=== PATIENT | female | born 1935 | race Caucasian/White ===

== ENCOUNTER 2023-07-21 04:41 | Emergency (ER) | payer MEDICARE, BC ==
[~2023-07-21] VITALS: Ht 167.6 cm; Wt 65.9 kg
[~2023-07-21 04:41] MED LIST: ALLEGRA 60MG TA60 MG PO; ALLEGRA30 MG PO; AMITRIPTYLINE H50 M1 PO; AMOXICILLIN 8751 TAB PO; ATIVAN 0.50.5 MG/TAB PO; ATROPINE OU; BENADRYL25 M2 PO; CEFTIN500 MG PO; CELEXA 20MG20 MG/TAB PO; CIPRO 500MG TA500 MG PO; COUMADIN 1MG1 MG/TAB PO; COUMADIN 22.5 MG/TAB PO; CULTURELLE10 Billion PO; CYMBALTA 20MG20 MG PO; DIFLUCAN200 MG PO; DULCOLAX10 MG RC; ELMIRON100 MG PO; FEROSUL325 MG PO; HYPOTEARS OP; INVANZ1 GM IM; LIDODERM PATCH TP; LOPRESSOR 225 MG/TAB PO; MAG-OX 400400 MG/TAB PO; MEGACE ORAL40 MG/ML PO; MILK OF MA400 MG/51 PO; MILLIPRED5 MG PO; MIRALAX PA17 GM/Dose PO; MYLANTA 150 ML150 M1 PO; NORCO 325 MG-51 TAB PO; PEPCID 20MG TAB20 MG PO; PRED FORTE 1 ML1 ML OP; SODIUM CHLORIDE1 G1 PO; SODIUM CHLORIDE1 GM PO; SYNTHROID0.05 MG/TA PO; TYLENOL 325MG325 MG PO; TYLENOL SU650 MG/SUP RC; TYLENOL W/COD1 UDTAB PO; URECHOLINE 25MG25 MG PO; VFEND 200MG200 MG; VIGAMOX 0.5% 3 M3 ML OP; ZOCOR 20MG20 MG; ZOCOR 20MG20 MG PO; ZOFRAN 4MG T4 MG/TAB PO
[2023-07-21 04:50] VITALS: TEMP 97.7
[2023-07-21 07:15] VITALS: BP 147/73; PULSE 78
== END 2023-07-21 07:18 | disposition home or self-care (01) ==
LOC: COL.ER 04:41
DX: S30.1XXA Contusion of abdominal wall, initial encounter (principal); W19.XXXA Unspecified fall, initial encounter; Y92.121 Bathroom in nursing home as the place of occurrence of the external cause

== ENCOUNTER 2023-09-07 08:25 | Inpatient (IN) | payer MEDICARE, BC ==
[~2023-09-07] VITALS: Ht 167.6 cm; Wt 67.0 kg
[2023-09-07 09:09] LABS: BASO % 0.4 % (0.0-2.0); EOS # 0.1 K/mm3 (0.0-0.7); EOS % 1.3 % (0.0-4.0); GRAN # 6.2 K/mm3 (1.4-6.5); GRAN % 68.8 % (42.2-75.2); HEMOGLOBIN 10.9 g/dl (12.5-16.0); LYMPH # 1.8 K/mm3 (1.2-3.4); LYMPH % 20.4 % (20.0-51.0); MEAN CELL VOLUME 85 fl (80.0-100.0); MEAN CORPUSCULAR HEMOGLOBIN 26 pg (27-31); MEAN CORPUSCULAR HGB CONC 31 g/dl (33.0-37.0); MEAN PLATELET VOLUME 8.7 fl (7.4-10.4); MONO # 0.7 K/mm3 (0.1-0.6); MONO % 8.2 % (1.7-9.3); PLATELET COUNT 282 K/mm3 (130-400); RED BLOOD COUNT 4.13 M/mm3 (4.10-5.30); REDCELL DISTRIBUTION WIDTH-CV 16.4 % (11.5-14.5)
[2023-09-07] MEDS ORDERED: LR 1,000 ML IV ONE (09:15)
[2023-09-07] MEDS ORDERED: Ondansetron 4 MG/2 ML VIAL IV ONE (09:15)
[2023-09-07 09:28] LABS: ALANINE AMINOTRANSFERASE 11 U/L (0-55); ALBUMIN 2.6 gm/dL (3.4-4.8); ALKALINE PHOSPHATASE 72 U/L (40-150); ANION GAP 12 mmol/L (7-16); AST,SGOT 13 U/L (5-34); BILIRUBIN,TOTAL 0.3 mg/dL (0.2-1.2); BLOOD UREA NITROGEN 21 mg/dL (10-20); CALCIUM 9.1 mg/dL (8.4-10.2); CARBON DIOXIDE 23 mmol/L (23-31); CHLORIDE 102 mmol/L (98-107); CREATININE, serum 0.91 mg/dL (0.57-1.11); GLUCOSE 75 mg/dL (70-99); LIPASE 24 U/L (8-78); POTASSIUM 3.7 mmol/L (3.5-4.5); SODIUM 137 mmol/L (136-145); TOTAL PROTEIN 5.5 gm/dL (6.2-8.1)
[2023-09-07 09:42] LABS: TROPONIN-I < 0.010 ng/mL (0.00-0.033)
[2023-09-07 10:07] LABS: COLLECTION METHOD CLEAN CATCH
[2023-09-07] MEDS ORDERED: Iohexol 300 - 100 ML VIAL IV ONE (10:11)
[2023-09-07] MEDS ORDERED: NS 100 ML IV SCH (10:11)
[2023-09-07 10:18] LABS: PH 6.5 (5.0-8.5); URINE APPEARANCE Cloudy (CLEAR/HAZY); URINE BLOOD Negative (NEGATIVE); URINE COLOR Yellow (YELLOW); URINE GLUCOSE Negative (NEGATIVE); URINE KETONE Negative (NEGATIVE); URINE NITRATE Positive (NEGATIVE); URINE PROTEIN(semi-quant) Negative (NEGATIVE); URINE UROBILINOGEN 0.2 E.U/dL (0.2-1.0)
[2023-09-07 10:19] LABS: URINE BACTERIA Moderate /hpf (NONE SEEN)
[2023-09-07] MEDS ORDERED: cefTRIAXone 1 G in Water For Injection,Sterile 10 ML IV ONE (11:45)
[2023-09-07] MEDS ORDERED: Morphine 4 MG/ML VIAL IV ONE (12:30)
[2023-09-07] MEDS ORDERED: DOXYCYCLINE HY100 MG PO (12:40)
[2023-09-07] MEDS ORDERED: SYNTHROID0.05 MG/TA PO (12:41)
[2023-09-07] MEDS ORDERED: ATIVAN 1MG T1 MG/TAB PO (12:42)
[2023-09-07] MEDS ORDERED: PLAVIX 75MG TAB75 MG PO (12:43)
[2023-09-07] MEDS ORDERED: ATARAX 25MG25 MG/TAB PO (12:43)
[2023-09-07] MEDS ORDERED: REQUIP 0.5MG0.5 MG PO (12:43)
[2023-09-07] MEDS ORDERED: ISOPTIN SR120 MG PO (12:44)
[2023-09-07] MEDS ORDERED: CYMBALTA 60MG60 MG PO (12:44)
[2023-09-07] MEDS ORDERED: MONUROL 3 GM3 G/PKT PO (12:45)
[2023-09-07] MEDS ORDERED: COREG 6.256.25 MG/TA PO (12:45)
[2023-09-07] MEDS ORDERED: OMNICEF 300MG300 MG PO (12:47)
[2023-09-07] MEDS ORDERED: PERCOCET 325 MG1 TAB PO (12:53)
[2023-09-07] MEDS ORDERED: PREDNISONE 5MG5 MG PO (12:54)
[2023-09-07] MEDS ORDERED: LASIX 20MG TABL20 MG PO (12:55)
[2023-09-07] MEDS ORDERED: PROTONIX 40MG T40 MG PO (12:56)
[2023-09-07] MEDS ORDERED: ZOCOR 20MG20 MG PO (12:56)
[2023-09-07] MEDS ORDERED: AMITRIPTYLINE H50 M1 PO (12:57)
[2023-09-07] MEDS ORDERED: NATURAL IRON65 MG PO (13:02)
[2023-09-07] MEDS ORDERED: VITAMINC1000TA PO (13:02)
[2023-09-07] MEDS ORDERED: PROBIOTIC BLEN1 EACH PO (13:03)
[2023-09-07] MEDS ORDERED: PRESERVISION A1 EAC3 PO (13:03)
[2023-09-07] MEDS ORDERED: VITAMIN D31000 I1 PO (13:03)
[2023-09-07] MEDS ORDERED: OMEGA-3 1000 MG1 CAP PO (13:04)
[2023-09-07] MEDS ORDERED: ASPIRIN E.C. 8181 MG PO (13:04)
[2023-09-07] MEDS ORDERED: PHARMASSURE ZIN50 MG PO (13:05)
[2023-09-07] MEDS ORDERED: OSCAL 500 TAB500 MG PO (13:06)
[2023-09-07] MEDS ORDERED: MAG-OX 400400 MG/TAB PO (13:06)
[2023-09-07] MEDS ORDERED: D5NS 1,000 ML IV SCH (15:00)
[2023-09-07] MEDS ORDERED: *Potassium Replacement Protocol MC SCH ×2 (15:00→23:00)
[2023-09-07 15:18] VITALS: BP 174/94; PULSE 89; TEMP 97.7
[2023-09-07] MEDS ORDERED: hydrALAZINE 20 MG/ML 1 ML VIAL IV PRN ×2 (15:30→16:15)
[2023-09-07] MEDS ORDERED: Morphine 4 MG/ML VIAL IV PRN (15:30)
[2023-09-07] MEDS ORDERED: THERATEARS 15 M15 ML OP (15:35)
--- NOTE | 2023-09-07 16:08 | NUR ---
PT ARRIVED TO FLOOR FROM ED. BLOOD PRESSURE WAS ELEVATED AT 174/94. DR GOMEZ WAS NOTIFIED. HE GAVE VERBAL ORDERS FOR HYDRALAZINE 10 MG IV Q4 FRO SPB >160. ALSO GOT ORDERS FOR MORPHINE FOR PT PAIN. PT CAME UP WITH NG TUBE IN. TAPED AT 55CM. PT VOIDED WHEN SHE FIRST GOT UP HERE. 1 ASSIST TO BEDSIDE COMODE. PT IS VERY ANXOIUS AND STATES THAT MOST OF HER PAIN IS IN HER KNECK AND HEAD FROM A FALL THAT SHE HAD 6 WEEKS AGO. RATES PAIN 7/10 IN THE ABODMEN AND STATES THAT THE ABDOMINAL PAIN IS GETTING BETTER. DR CRAWFORD WAS ALSO NOTIFIED BY THIS NURSE OF CONSULT.
[2023-09-07] MEDS ORDERED: Heparin 5,000 UNITS/ML 1 ML VIAL SQ SCH (16:19)
[2023-09-07] MEDS ORDERED: Carvedilol 6.25 MG TAB PO SCH (17:00)
[2023-09-07 17:03] VITALS: BP 116/77
[2023-09-07 17:22] VITALS: BP_SYST 116
[2023-09-07] MEDS ORDERED: LORazepam 2 MG/ML 1 ML VIAL IV PRN (17:45)
[2023-09-07 20:12] VITALS: BP 123/76; PULSE 92; TEMP 98.4
[2023-09-07] MEDS ORDERED: Amitriptyline 50 MG TAB PO SCH (21:00)
[2023-09-07 21:32] VITALS: BP_SYST 123
--- NOTE | 2023-09-07 21:32 | NUR ---
Patient assessed at this time, see shift assessment, called Marci the WRINGER MACHINE OPERATOR d/t patient is complaining of headache, received an order for toradol and can have a little bit of ice chips,NPO maintained, still with IV infusing well on left forearm, D5NS at 75cc/hr, with NG to LIS, denies nausea or vomiting, states her abdomen is not bad at this time, denies further needs, call light and personal items within reach, fall precautions in place, will continue to monitor.
[2023-09-07] MEDS ORDERED: Carboxymethylcellulose PF Ophth 0.4 ML DROPPERETTE OP PRN (21:45)
[2023-09-07] MEDS ORDERED: Ketorolac 15 MG/ML VIAL IV ONE (21:45)
[2023-09-07] MEDS ORDERED: Potassium Chloride 100 ML IV ONE (23:00)
[2023-09-08] VITALS (13 sets, daily range): BP systolic 127–156; BP diastolic 83–95; PULSE 85–97; TEMP 96.8–98.8
[2023-09-08 07:46] LABS: BASO % 0.5 % (0.0-2.0); EOS # 0.1 K/mm3 (0.0-0.7); EOS % 1.1 % (0.0-4.0); GRAN % 61.8 % (42.2-75.2); LYMPH # 1.7 K/mm3 (1.2-3.4); LYMPH % 25.6 % (20.0-51.0); MEAN CELL VOLUME 81 fl (80.0-100.0); MEAN CORPUSCULAR HGB CONC 32 g/dl (33.0-37.0); MEAN PLATELET VOLUME 9.5 fl (7.4-10.4); MONO # 0.7 K/mm3 (0.1-0.6); MONO % 10.2 % (1.7-9.3); PLATELET COUNT 272 K/mm3 (130-400); RED BLOOD COUNT 3.54 M/mm3 (4.10-5.30); REDCELL DISTRIBUTION WIDTH-CV 16.4 % (11.5-14.5)
[2023-09-08 08:05] LABS: ALBUMIN 2.1 gm/dL (3.4-4.8); CALCIUM 8.3 mg/dL (8.4-10.2); CREATININE, serum 0.82 mg/dL (0.57-1.11); MAGNESIUM 1.7 mg/dL (1.6-2.6); POTASSIUM 3.7 mmol/L (3.5-4.5)
[2023-09-08 08:08] LABS: HEMATOCRIT 28.8 % (37.0-47.0); HEMOGLOBIN 9.2 g/dl (12.5-16.0); MEAN CORPUSCULAR HEMOGLOBIN 26 pg (27-31)
[2023-09-08] MEDS ORDERED: predniSONE 5 MG TAB PO SCH (09:00)
[2023-09-08] MEDS ORDERED: Potassium Chloride 100 ML IV SCH (09:15)
--- NOTE | 2023-09-08 09:17 | NUR ---
signal worker helper met with patient and daughter, Violeta, P# [phone], to discuss discharge planning. Patient lives at [facility] in [place]. PCP is Dr. Pacheco, pharmacy [facility], no issues affording medications at this time. DPOA-HC is Soumya Schaeffer, P# [phone], family is bringing a copy tomorrow to the hospital for our records. DME is a four wheel walker, toilet riser and shower chair. Patient receives assistance with bathing, using the restroom and house keeping. Violeta reports she assists patient with managing her medications and transports her to and from appointments. Patient reports she is currently receiving PT and OT at [facility] and enjoys it. Patient would like to return to [place] upon discharge. Discharge plan: [facility]
--- NOTE | 2023-09-08 11:11 | NUR ---
Patient awake, alert and oriented x 3. Denies abdominal pain, c/o back/neck pain, PRN given as ordered. States she is passing gas, no BM this AM. NG in place, clamped per order. Mild nausea noted after drinking water. Family member at the bedside. Bed in lowest position with call light within reach. Fall precautions in place.
[2023-09-08] MEDS ORDERED: cefTRIAXone 1 G in Water For Injection,Sterile 10 ML IV SCH (12:00)
--- NOTE | 2023-09-08 17:53 | NUR ---
NG tube remains clamped, pt complaining mainly of back/neck pain with occasional abdominal pain, nauseous with movement. Tolerating sips of clear liquids. Assisted to the bedside commode and ambulated to chair. Chair alarm on, call light within reach. Family at the bedside.
--- NOTE | 2023-09-08 19:58 | NUR ---
Patient complained of nausea and pain on her throat, called Ce, the CARROT HARVESTER and received an order for zofran and chloraseptic spray. Patient also complained of pain to her abdomen, medicated with morphine and very anxious at this time, ativan given. Hooked back to low intermittent suction, distended abdomen noted, hypoactive bowel sounds. Still with IV infusing well on left forearm, denies further needs, call light and personal items within reach, will continue to monitor.
[2023-09-08] MEDS ORDERED: Phenol 1.4% Spray 180 ML BOTTLE MM PRN (20:00)
[2023-09-08] MEDS ORDERED: Ondansetron 4 MG/2 ML VIAL IV PRN (20:00)
[2023-09-09] VITALS (12 sets, daily range): BP systolic 137–165; BP diastolic 78–88; PULSE 77–102; TEMP 98–98.4
--- NOTE | 2023-09-09 02:09 | NUR ---
Patient up to the BSC at this time and complained of headache, called Ce,the CLINICAL CONSULTANT and received an order for ultram, ultram given.
[2023-09-09] MEDS ORDERED: traMADol 50 MG TAB PO ONE ×2 (02:15→23:45)
--- NOTE | 2023-09-09 05:30 | NUR ---
Patient up to the BSC and voided, reports relief from headache, NG to LIS still draining, reports she's passing gas, no BM yet, denies nausea, will continue to monitor.
[2023-09-09 06:46] LABS: BASO % 0.3 % (0.0-2.0); EOS # 0.1 K/mm3 (0.0-0.7); EOS % 1.5 % (0.0-4.0); GRAN # 4.8 K/mm3 (1.4-6.5); GRAN % 67.3 % (42.2-75.2); HEMOGLOBIN 10.4 g/dl (12.5-16.0); LYMPH # 1.5 K/mm3 (1.2-3.4); LYMPH % 21.1 % (20.0-51.0); MEAN CELL VOLUME 83 fl (80.0-100.0); MEAN CORPUSCULAR HEMOGLOBIN 26 pg (27-31); MEAN CORPUSCULAR HGB CONC 31 g/dl (33.0-37.0); MEAN PLATELET VOLUME 8.8 fl (7.4-10.4); MONO # 0.6 K/mm3 (0.1-0.6); PLATELET COUNT 254 K/mm3 (130-400); RED BLOOD COUNT 3.97 M/mm3 (4.10-5.30); REDCELL DISTRIBUTION WIDTH-CV 16.2 % (11.5-14.5)
[2023-09-09 06:59] LABS: HEMATOCRIT 33.1 % (37.0-47.0)
[2023-09-09 07:14] LABS: ALBUMIN 2.2 gm/dL (3.4-4.8); CALCIUM 8.3 mg/dL (8.4-10.2); CREATININE, serum 0.77 mg/dL (0.57-1.11); MAGNESIUM 1.8 mg/dL (1.6-2.6); PHOSPHOROUS 2.7 mg/dL (2.3-4.7); POTASSIUM 4.1 mmol/L (3.5-4.5)
--- NOTE | 2023-09-09 07:41 | NUR ---
SHIFT ASSESSMENT COMPLETE. VSS. PATIENT RESTING IN BED. ABD DISTENDED AND PATIENT COMPLIANS OF SOME PAIN 4/10 INTERMIT. ACROSS ABD REGION. NG TUBE IN PLACE AND CONNETED TO LOW INTERMIT SUCTION. INT TO LFT FOREARM W/ NS RUNNING AT 75ML/HR NO REDNESS, SWELLING OR DRAINAGE. PATIENT HAS NO OTHER COMPLAINTS AT THIS TIME. FALL PRECAUTIONS IN PLACE AND CALL LIGHT IN REACH
[2023-09-09] MEDS ORDERED: Meropenem 500 MG in Water For Injection,Sterile 10 ML IV SCH (12:00)
--- NOTE | 2023-09-09 13:49 | NUR ---
apresoline 10mg given slow IV for SBP >160
--- NOTE | 2023-09-09 15:20 | NUR ---
appears very anxious about a number of things, medicated with ativan 0.5mg slow IV
--- NOTE | 2023-09-09 15:20 | NUR ---
PATIENT'S DAUGHTER CAME TO NURSES STATION REQUESTING NURSE TO COME CHECK ON PATIENT SHE WAS SHIVERING AND HAVING SIGNS OF INCREASED ANXITY. VITAL SIGNS TAKEN AND WERE STABLE. INSTRUCTED PATIENT TO TAKE SLOW DEEP BREATHS AND ADMINISTERED ANTIANXITY MEDS ORDERED. CALL LIGHT IN REACH.
--- NOTE | 2023-09-09 16:30 | NUR ---
CHECKED ON PATIENT AND STATUS OF ANXITY. PATIENT LAYING DOWN RESTING NOW AND FEELING BETTER. DAUGHTER STILL AT BEDSIDE. CALL LIGHT IN REACH.
--- NOTE | 2023-09-09 18:04 | NUR ---
NG TUBE CLAMPED AT 12PM TODAY, FOLLOWED UP AT 1800 FOR ANY SX OF N/V. PATIENT REPORTS NO N/V AT THIS TIME. WILL CONTINUE TO KEEP NG CLAMPED
--- NOTE | 2023-09-09 18:55 | NUR ---
PATIENT RESTING IN BED WITH FAMILY PRESENT AT THIS TIME. NO ACUTE DISTRESS NOTED. PATIENT ON ROOM AIR. PATIENT CARE ASSUMED FROM [facility] AT THIS TIME. NG TUBE IN RIGHT NARES, INTACT, PATIENT, AND CLAMPED. PATIENT DENIES ANY NEEDS AT THIS TIME. BED IN LOW POSITION WITH WHEELS LOCKED WITH RAILS UP X3 AND CALL LIGHT WITHIN REACH. BED ALARM ON.
--- NOTE | 2023-09-09 20:30 | NUR ---
PATIENT RESTING IN BED LYING ON RIGHT SIDE WITH TV OFF WITH NO FAMILY PRESENT WITH NO ACUTE DISTRESS NOTED. PATIENT ON ROOM AIR. NG TUB IN RIGHT NARES CLAMPED. ASSESSMENT AND MEDICATION ADMINISTRATION COMPLETED AT THIS TIME. PATIENT C/O HEADACHE. PATIENT STATES PAIN LEVEL IS 8/9 ON SCALE OF 0 TO 10. MORPHINE GIVEN PER MD ORDER. PATIENT TOLERATED WELL. PATIENT DENIES ANY OTHER NEEDS AT THIS TIME. BED IN LOW POSITION WITH WHEELS LOCKED WITH RAILS UP X3 AND CALL LIGHT WITHIN REACH. BED ALARM ON.
--- NOTE | 2023-09-09 23:30 | NUR ---
PATIENT C/O HEADACHE. MATEUS SANCHEZ CALLED. TELEPHONE ORDER RECIEVED FOR ULTRAM 50 MG PO ONCE.
--- NOTE | 2023-09-09 23:50 | NUR ---
PATIENT PLACED IN CONTACT ISOLATION FOR KLEBSIELLA PNEUMONIAE ESBL IN URINE.
[2023-09-10] VITALS (13 sets, daily range): BP systolic 144–165; BP diastolic 63–88; PULSE 66–96; TEMP 98.2–98.5
[2023-09-10 06:59] LABS: CALCIUM 7.9 mg/dL (8.4-10.2); CREATININE, serum 0.68 mg/dL (0.57-1.11); POTASSIUM 3.7 mmol/L (3.5-4.5)
[2023-09-10] MEDS ORDERED: Potassium Chloride 100 ML IV SCH (07:15)
[2023-09-10] MEDS ORDERED: Potassium Bicarbonate/Citrate 20 MEQ Effervescent TAB PO SCH (08:45)
--- NOTE | 2023-09-10 09:30 | NUR ---
notified and made aware of patient request for breakfast. He was updated that she had BM. NG tube DC and low fiber diet ordered. Patient thankful. Her daughters at bedside.
[2023-09-10] MEDS ORDERED: Acetaminophen 500 MG TAB PO PRN (09:45)
[2023-09-10] MEDS ORDERED: traMADol 50 MG TAB PO PRN (09:45)
[2023-09-10] MEDS ORDERED: Verapamil SR 120 MG TAB PO SCH (10:42)
--- NOTE | 2023-09-10 11:30 | NUR ---
Patient tolerated her low fiber dier. Tramadol For headache did help. Patient reports chronic pain and headaches. Her supportive family at bedside.
--- NOTE | 2023-09-10 16:49 | NUR ---
cabinet worker was notified patient needs continued IV antibiotics upon discharge. DIANE contacted [facility] to determine if they would be able to assist with that in her assisted living setting. [facility] expressed they would not be able to do so in assisted living but they have a bed available for the patient in the [facility] house upon discharge. Patient could not receive or need Ativan within 24 hours of admission. DIANE updated patient's nurse and PA, Kathy, both expressed she has been doing well and would discontinue the PRN ativan. DIANE met with patient and her daughter, Violeta, to provide the above update. Patient was not thrilled about going to [facility] instead of her assisted living apartment but was understanding. SW reviewed the important message from Medicare with patient as she was potentially discharging tomorrow. Patient understood her rights and had no questions or concerns. Patient signed the form, SW made a copy and placed the original in the chart. SW provided copy to patient. DIANE was notified patient would like to update her DPOA-HC to make her daughter, Violeta, the primary agent as her daughter, Soumya, lives in [place]. DIANE assisted patient with updating the DPOA-HC. DIANE and RN witnessed patient's signature. DIANE made several copies, placed a copy in the chart and provided the original and several copies to the patient. [facility]
--- NOTE | 2023-09-10 19:33 | NUR ---
Patient more anxious this evening, Her daughter remains at bedside. Patient upset she will not be able to return to her apartment and [facility]io[facility]. Reassusred her this is for her health. She tolerated dinner. She contineus to have to void frequently. Assisted with walker. Bedside report to Elen to resume cares
--- NOTE | 2023-09-10 20:00 | NUR ---
PT A&O LAYING IN BED WITH DAUGHTER AT BEDSIDE. VSS. PT DENYING PAIN OR N/V. PT REPORTS TOLERATING FOOD OKAY. INT TO LEFT FOREARM PATENT. PT DENYING FURTHER NEEDS. CALL LIGHT IN REACH.
[2023-09-10] MEDS ORDERED: rOPINIRole 0.5 MG TAB PO SCH (21:00)
[2023-09-10] MEDS ORDERED: Simvastatin 20 MG **** subs to Atorvastatin 10 MG PO SCH (21:00)
[2023-09-10] MEDS ORDERED: DULoxetine 60 MG CAP PO SCH (21:00)
[2023-09-10] MEDS ORDERED: Atorvastatin 10 MG TAB PO SCH (21:00)
[2023-09-11 03:15] VITALS: BP 143/64; PULSE 72; TEMP 98.5
[2023-09-11 03:17] VITALS: BP_SYST 143
--- NOTE | 2023-09-11 05:14 | NUR ---
PT RESTING IN BED WITH UNLABORED RESP. PAIN WAS CONTROLLED THROUGHOUT THE NIGHT WITH PRN TRAMADOL. PT UP TO BSC WITH X2 ASSIST SEVERAL TIMES. FALL PRECAUTIONS IN PLACE & CALL LIGHT IN REACH. DENYING FURTHER NEEDS
[2023-09-11 06:32] LABS: BASO % 0.3 % (0.0-2.0); EOS # 0.1 K/mm3 (0.0-0.7); EOS % 1.8 % (0.0-4.0); GRAN # 4.4 K/mm3 (1.4-6.5); GRAN % 65.8 % (42.2-75.2); LYMPH # 1.5 K/mm3 (1.2-3.4); LYMPH % 22.1 % (20.0-51.0); MEAN CELL VOLUME 83 fl (80.0-100.0); MEAN CORPUSCULAR HGB CONC 32 g/dl (33.0-37.0); MEAN PLATELET VOLUME 9.9 fl (7.4-10.4); MONO # 0.6 K/mm3 (0.1-0.6); MONO % 9.1 % (1.7-9.3); PLATELET COUNT 234 K/mm3 (130-400); RED BLOOD COUNT 3.46 M/mm3 (4.10-5.30)
[2023-09-11 06:45] LABS: HEMATOCRIT 28.7 % (37.0-47.0); HEMOGLOBIN 9.1 g/dl (12.5-16.0); MEAN CORPUSCULAR HEMOGLOBIN 26 pg (27-31)
[2023-09-11 06:59] LABS: CALCIUM 7.9 mg/dL (8.4-10.2); CREATININE, serum 0.74 mg/dL (0.57-1.11); POTASSIUM 4.3 mmol/L (3.5-4.5)
[2023-09-11 08:32] VITALS: BP 166/87; PULSE 94; TEMP 98.9
[2023-09-11 09:00] VITALS: BP_SYST 166
[2023-09-11] MEDS ORDERED: INVANZ INJ1 G/VIAL IV (09:52)
[2023-09-11] MEDS ORDERED: ULTRAM 50MG TAB50 MG PO (09:59)
[2023-09-11 11:27] VITALS: BP_SYST 166
--- NOTE | 2023-09-11 11:28 | NUR ---
PATIENT ALERT AND ORIENTED X4. VSS. WITH BP BEING SLIGHTLY ELEVATED. PATIENT IS ANXIOUS BUT EASILY REDIRECTED AND ABLE TO CALM DOWN. PATIENT DENIES ANY PAIN THIS MORNING. IV TO LEFT FA INT AND FLUSHES WELL. ASSESSMENT PERFORMED. AM MEDS ADMINISTERED. PATIENT RESTING IN BED, WAITING ON BREAKFAST. CALL LIGHT IN REACH. BED ALARM ON.
[2023-09-11 12:06] VITALS: BP 145/80; PULSE 80; TEMP 98.4
--- NOTE | 2023-09-11 12:22 | NUR ---
drywall metal stud worker was notified patient is medically stable for discharge. Patient will need IV antibiotics for 10 days. DIANE secure [facility] DIANE was notified patient will get Invanz 1 gm once a day for 10 days. DIANE notified [facility] whom expressed normally due to the cost of this medication, they would be unable to accept but as this patient lives at [facility] they are okay with the medication. DIANE was notified patient will be able to discharge today at 1:30 pm. DIANE notified patient's nurse, patient's daughter, Violeta, and community service worker. Discharge plan: [facility]
--- NOTE | 2023-09-11 13:37 | NUR ---
ONE TIME DOSE OF INVANZ ADMINISTERED VIA PICC LINE. PATIENT TOLERATED WELL. INT IV TO LEFT FA DC'D. TOLERATED WELL. PATIENT AND BELONGINGS GATHERED, PACKET GIVEN TO TRANSPORTER. REPORT CALLED TO JOSE ALFREDO AT [facility]. LEFT NUMBER IN CASE OF QUESTIONS.
== END 2023-09-11 13:39 | DRG 390 ==
LOC: COL.ER 08:25 → SURG 11:39 → EDBEDREQ 14:44 → SURG 21:00
PROVIDERS: Emergency Medicine; Internal Medicine; Physician Assistant; ADMIT Internal Medicine
DX: K56.609 Unspecified intestinal obstruction, unspecified as to partial versus complete obstruction (principal); I25.10 Atherosclerotic heart disease of native coronary artery without angina pectoris; Z66 Do not resuscitate; Z86.711 Personal history of pulmonary embolism
CPT/HCPCS: C1751; J0360; J0696; J1335; J1644; J1885; J2060; J2185; J2270; J2405; J3480; J7042; J7120; J7512; Q3014; Q9967

== ENCOUNTER → 2023-09-20 | Outpatient (CLI) | payer MEDICARE, BC ==
[~2023-09-20] MED LIST changes: +ASPIRIN E.C. 8181 MG PO; +ATARAX 25MG25 MG/TAB PO; +ATIVAN 1MG T1 MG/TAB PO; +COREG 6.256.25 MG/TA PO; +CYMBALTA 60MG60 MG PO; +DOXYCYCLINE HY100 MG PO; +INVANZ INJ1 G/VIAL IV; +ISOPTIN SR120 MG PO; +LASIX 20MG TABL20 MG PO; +MONUROL 3 GM3 G/PKT PO; +NATURAL IRON65 MG PO; +OMEGA-3 1000 MG1 CAP PO; +OMNICEF 300MG300 MG PO; +OSCAL 500 TAB500 MG PO; +PERCOCET 325 MG1 TAB PO; +PHARMASSURE ZIN50 MG PO; +PLAVIX 75MG TAB75 MG PO; +PREDNISONE 5MG5 MG PO; +PRESERVISION A1 EAC3 PO; +PROBIOTIC BLEN1 EACH PO; +PROTONIX 40MG T40 MG PO; +REQUIP 0.5MG0.5 MG PO; +THERATEARS 15 M15 ML OP; +ULTRAM 50MG TAB50 MG PO; +VITAMIN D31000 I1 PO; +VITAMINC1000TA PO
== END ==
LOC: COL.RAD 14:20
DX: G93.89 Other specified disorders of brain (principal); R41.82 Altered mental status, unspecified